=== PATIENT | female | born 1940 | race African-American/Black ===

== ENCOUNTER 2016-03-20 08:45 | Emergency (ER) | payer OTHER ==
[~2016-03-20] VITALS: Ht 165.1 cm; Wt 152.0 kg
--- NOTE | ~2016-03-20 | EKG ---
[address] [address] ELECTROCARDIOGRAM REPORT Name: VICTORINO HORTA Room #: DEP Gene#: [id number] Admission: 03/20/16 Attend Phys: Discharge: 03/20/16 Date of : 44 Report #: [id number] THIS REPORT FOR: //name// [facility] ED Test Date: 2016-03-20 Test Time: 09:13:26 Pat Name: VICTORINO HORTA Department: Room: Gender: F Rn Neonatal Icu: Karen MAJOR : 1940 Requested By: Baldev Davidson Order Number: [id number] MD: Kishor Roth Measurements Intervals [place] Rate: 101 P: 52 FL: 238 QRS: 50 QRSD: 96 T: 1 QT: 342 QTc: 444 Interpretive Statements Sinus tachycardia Prolonged FL interval No previous ECG available for comparison Electronically Signed On 03-20-2016 16:47:18 ELECTRONICS DETAIL DRAFTSPERSON by Kishor Roth [email or web address] <ELECTRONICALLY SIGNED> By: Kishor Roth MD 03/20/16 1647 0913 2 MD GERMAN Dominguez
[~2016-03-20 08:45] MED LIST: AMARYL2 MG; AMBEREN; ANTACID500 MG; BENTYL10 MG; BUSPIRONE; CARAFATE 11 GM/10 M1 PO; CHLORHEXIDINE; CIPRO500 MG PO; CLONAZEPAM; COLACE 100 MG100 MG PO; COLACE100 MG; DUONEB 2.5-0.5 M3 ML INH; FLAGYL500 MG PO; FLONASE 0.05%50 MCG; FUROSEMIDE 40 M40 M1; HYDROCODON-ACE1 EAC7 PO; KEFLEX500 MG PO; LISINOPRIL20 MG PO; LOPRESSOR; LOPRESSOR25 PO; MIRALAX17 GM PO; MIRALAX255 GM; MUCINEX600 MG; NEURONTIN 300300 M1 PO; OMEPRAZOLE; RANITIDINE; SENNA8.6 MG PO; SERTRALINE HCL25 MG PO; TESSALON200 MG; TIZANIDINE HCL4 M1 PO; TYLENOL325 MG PO; VICODIN; VITAMIN D 5050000 I1 PO; VITCB500GO; ZOFRAN4 MG
[2016-03-20] MEDS ORDERED: PULMICORT0.5 MG/22 INH (08:57)
[2016-03-20] MEDS ORDERED: ALBUTEROL2.5 MG/0.5 INH (08:57)
[2016-03-20] MEDS ORDERED: CIPRODEX OTIC7.5 ML OTIC (08:59)
[2016-03-20] MEDS ORDERED: ACETYLCYST100 MG/1 M MC (09:01)
[2016-03-20] MEDS ORDERED: ACETYLCYST200 MG/1 M INH (09:01)
[2016-03-20] MEDS ORDERED: ISOPTO TEARS15 ML OP (09:03)
[2016-03-20] MEDS ORDERED: PAROEX473 ML MM (09:04)
[2016-03-20] MEDS ORDERED: GUAIFENESIN DM1 EACH PO (09:07)
[2016-03-20 09:08] LABS: URINE BILIRUBIN NEGATIVE (Negative); URINE BLOOD 1+ (Negative); URINE COLOR YELLOW; URINE GLUCOSE-RANDOM* NEGATIVE (Negative); URINE KETONES NEGATIVE (Negative); URINE LEUKOCYTES-REFLEX 2+ (Negative); URINE PROTEIN (DIPSTICK) 2+ (Negative); URINE UROBILINOGEN 0.2 E.U./dl (0.2-1.0)
[2016-03-20] MEDS ORDERED: NYAMYC15 GM TOP (09:08)
[2016-03-20] MEDS ORDERED: TUMS PO (09:09)
[2016-03-20] MEDS ORDERED: VITAMIN D 5050000 I1 PO (09:10)
[2016-03-20] MEDS ORDERED: ONDANSETRON HCL4 M2 PO (09:11)
[2016-03-20 09:20] LABS: CASTS None Seen /LPF (None Seen); SQUAMOUS 0-3 Few /LPF (0-3); URINE RBC 3-10 Few /HPF (0-2); URINE WBC-REFLEX >25 Many /HPF (0-5)
[2016-03-20 09:24] LABS: AMORPHOUS PHOSPHATES Moderate /LPF (None Seen)
[2016-03-20 09:45] LABS: BASOPHILS 0.5 % (0.0-2.0); EOSINOPHILS 0.7 % (0.0-3.0); HEMATOCRIT 40.6 % (37.0-47.0); MCHC 32.1 % (28.0-37.0); MCV 87.2 fL (80.0-100.0); MONOCYTES 9.3 % (1.0-8.0); PLATELET COUNT 157 thou/uL (150-400); POLYS 57.5 % (36.0-66.0); RBC 4.66 mil/uL (4.20-5.00); RDW 13.2 % (10.5-14.5); WBC 5.3 thou/uL (4.0-11.0)
[2016-03-20 09:49] LABS: MANUAL DIFF NO
[2016-03-20 09:51] LABS: ANION GAP 5 mmol/L (7-16); BUN 11 mg/dL (7-18); CALCIUM 9.6 mg/dL (8.5-10.1); CHLORIDE 98 mmol/L (98-107); CO2 34 mmol/L (21-32); CREATININE 0.9 mg/dL (0.6-1.3); GLUCOSE 116 mg/dL (70-99); POTASSIUM 3.8 mmol/L (3.5-5.1); SODIUM 137 mmol/L (136-145)
[2016-03-20 10:08] LABS: ALBUMIN 3.6 g/dL (3.4-5.0); ALKALINE PHOSPHATASE 91 U/L (46-116); MAGNESIUM 1.5 mg/dL (1.8-2.4); NT-PRO BRAIN NAT PEPTIDE 556 pg/mL (<300); SGOT 23 U/L (15-37); SGPT 18 U/L (30-65); TOTAL BILIRUBIN 0.3 mg/dL (<0.1-1.0); TOTAL PROTEIN 8.6 g/dL (6.4-8.2); TROPONIN-I < 0.04 ng/mL (<0.04-0.07)
[2016-03-20] MEDS ORDERED: LEVAQUIN 500 M500 M1 PO (10:38)
[2016-03-20] MEDS ORDERED: OSELB75 PO (10:38)
== END 2016-03-20 12:00 | disposition home or self-care (01) ==
LOC: ER 08:45
PROVIDERS: Emergency Medicine
DX: I13.0 Hypertensive heart and chronic kidney disease with heart failure and stage 1 through stage 4 chronic kidney disease, or unspecified chronic kidney disease (principal); E11.22 Type 2 diabetes mellitus with diabetic chronic kidney disease; I50.9 Heart failure, unspecified; J44.9 Chronic obstructive pulmonary disease, unspecified; N39.0 Urinary tract infection, site not specified; J11.1 Influenza due to unidentified influenza virus with other respiratory manifestations; N18.9 Chronic kidney disease, unspecified; K21.9 Gastro-esophageal reflux disease without esophagitis; F41.9 Anxiety disorder, unspecified; Z93.0 Tracheostomy status; Z90.710 Acquired absence of both cervix and uterus; Z88.0 Allergy status to penicillin; E83.42 Hypomagnesemia

== ENCOUNTER 2017-05-25 11:08 | Emergency (ER) | payer OTHER ==
[~2017-05-25] VITALS: Ht 152.4 cm; Wt 163.3 kg
[~2017-05-25 11:08] MED LIST changes: +ACETYLCYST100 MG/1 M MC; +ACETYLCYST200 MG/1 M INH; +ALBUTEROL2.5 MG/0.5 INH; +CIPRODEX OTIC7.5 ML OTIC; +GUAIFENESIN DM1 EACH PO; +ISOPTO TEARS15 ML OP; +LEVAQUIN 500 M500 M1 PO; +NYAMYC15 GM TOP; +ONDANSETRON HCL4 M2 PO; +OSELB75 PO; +PAROEX473 ML MM; +PULMICORT0.5 MG/22 INH; +TUMS PO
[2017-05-25 11:42] LABS: ABSOLUTE NEUTROPHILS 4.8 thou/uL (1.4-8.2); BASOPHILS 0.6 % (0.0-2.0); EOSINOPHILS 2.3 % (0.0-3.0); HEMATOCRIT 35.2 % (37.0-47.0); HEMOGLOBIN 11.2 gm/dL (12.0-15.0); LYMPHOCYTES 24.4 % (24.0-44.0); MCH 28.3 pg (26.0-34.0); MCHC 31.7 g/dL (28.0-37.0); MONOCYTES 5.1 % (1.0-8.0); PLATELET COUNT 227 thou/uL (150-400); POLYS 67.6 % (36.0-66.0); RBC 3.96 mil/uL (4.20-5.00); RDW 12.6 % (10.5-14.5); WBC 7.1 thou/uL (4.0-11.0)
[2017-05-25 11:51] LABS: CALCIUM 9.7 mg/dL (8.5-10.1); CREATININE 0.8 mg/dL (0.6-1.0); POTASSIUM 4.4 mmol/L (3.5-5.1)
[2017-05-25 12:01] LABS: URINE BILIRUBIN NEGATIVE (Negative); URINE BLOOD 3+ (Negative); URINE CLARITY SL CLOUDY; URINE GLUCOSE-RANDOM* NEGATIVE (Negative); URINE KETONES NEGATIVE (Negative); URINE LEUKOCYTES 2+ (Negative); URINE NITRITE NEGATIVE (Negative); URINE PROTEIN (DIPSTICK) 1+ (Negative); URINE SPECIFIC GRAVITY <= 1.005 (1.005-1.035); URINE UROBILINOGEN 0.2 E.U./dl (0.2-1.0)
[2017-05-25] MEDS ORDERED: CEFUROXIME250 MG PO (12:02)
[2017-05-25 12:03] LABS: URINE COLOR PALE YELLOW
[2017-05-25 12:27] LABS: BACTERIA 1-9 Few /HPF (None Seen); CASTS None Seen /LPF (None Seen); CRYSTALS None Seen /LPF (None Seen); SQUAMOUS 0-3 Few /LPF (0-3); URINE WBC 6-15 Few /HPF (0-5)
[2017-05-25 15:04] VITALS: BP 152/68
== END 2017-05-25 15:06 | disposition home or self-care (01) ==
LOC: ER 11:08
PROVIDERS: Emergency Medicine
DX: N30.90 Cystitis, unspecified without hematuria (principal); I12.9 Hypertensive chronic kidney disease with stage 1 through stage 4 chronic kidney disease, or unspecified chronic kidney disease; E11.22 Type 2 diabetes mellitus with diabetic chronic kidney disease; N18.9 Chronic kidney disease, unspecified; K21.9 Gastro-esophageal reflux disease without esophagitis; J44.9 Chronic obstructive pulmonary disease, unspecified; Z88.0 Allergy status to penicillin

== ENCOUNTER 2018-02-14 06:00 | Inpatient (IN) | payer OTHER ==
[2018-02-14] VITALS (44 sets, daily range): BP systolic 89–154; BP diastolic 34–85
[~2018-02-14] VITALS: Ht 154.9 cm; Wt 148.5 kg
--- NOTE | ~2018-02-14 | 2DMMODE ---
[facility] [place] [address] 2 D/M-MODE ECHOCARDIOGRAM Name: VICTORINO HORTA Room #: 242-P ADM IN M.R.#: [id number] Admission: 02/14/18 Attend Phys: Josh Dorsey MD Discharge: Date of : 44 Date of Service: 02/15/18 1148 Report #: [id number] THIS REPORT FOR: //name// APPROVED REPORT Study performed: 02/15/2018 10:44:17 EXAM: Comprehensive 2D, Doppler, and color-flow Echocardiogram Patient Location: ICU Room #: 242 Status: routine BSA: 2.34 HR: 75 bpm BP: 136/70 mmHg Rhythm: NSR Other Information Study Quality: Adequate Technically limited study due to morbid obesity, no patient mobility, trach. Indications Hypoxia, CHF. Hx: Trach, COPD, CHF, HTN, DM Echo Enhancing Agent Indication: Endocardial border delineation Agent(s) / Amount(s) Used: Optison 5 cc 2D Dimensions RVDd: 38.69 mm IVSd: 11.96 (7-11mm) LVOT Diam: 19.13 (18-24mm) LVDd: 41.74 mm PWd: 11.74 (7-11mm) Ascending Ao: 37.03 (22-36mm) LVDs: 25.10 (25-40mm) Aortic Root: 30.03 mm Volumes Left Atrial Volume (Systole) Single Plane 4CH: 46.56 mL Single Plane 2CH: 79.20 mL LA ESV Index: 28.00 mL/m2 Aortic Valve AoV Peak Stan.: 2.28 m/s AO Peak Gr.: 20.78 mmHg LVOT Max P.11 mmHg LVOT Max V: 1.67 m/s [facility] [place] [address] 2 D/M-MODE ECHOCARDIOGRAM Name: VICTORINO HORTA Room #: 242-[facility] IN M.R.#: [id number] Admission: 02/14/18 Attend Phys: Josh Dorsey MD Discharge: Date of : 44 Date of Service: 02/15/18 1148 Report #: [id number] NOAM Vmax: 2.10 cm2 Mitral Valve E/A Ratio: 1.3 MV Decel. Time: 185.06 ms MV E Max Stan.: 1.04 m/s MV A Stan.: 0.79 m/s MV PHT: 53.67 ms IVRT: 79.58 ms Pulmonary Valve PV Peak Stan.: 1.45 m/s PV Peak Gr.: 8.39 mmHg Pulmonary Vein P Vein S: 0.61 m/s P Vein D: 0.65 m/s P Vein S/D Ratio: 0.94 Tricuspid Valve TR Peak Stan.: 2.59 m/s RAP Estimate: 15.00 mmHg TR Peak Gr.: 26.81 mmHg PA Pressure: 42.00 mmHg Left Ventricle The left ventricle is normal size. There is normal LV segmental wall motion. Mild concentric left ventricular hypertrophy. Left ventricular systolic function is normal. LVEF is 65%. Moderate diastolic dysfunction is present (pseudonormal filling). Right Ventricle The right ventricle is normal size. The right ventricular systolic function is normal. Atria The left atrium size is normal. The right atrium size is normal. Aortic Valve The Aortic valve is mildly sclerotic. No aortic regurgitation is present. There is no aortic valvular stenosis. Mitral Valve The mitral valve is normal in structure. Mild mitral regurgitation. No evidence of mitral valve stenosis. Tricuspid Valve [facility] [address] [place] [address] 2 D/M-MODE ECHOCARDIOGRAM Name: VICTORINO HORTA Room #: 242-P [facility] IN M.R.#: [id number] Admission: 02/14/18 Attend Phys: Josh Dorsey MD Discharge: Date of : 44 Date of Service: 02/15/18 1148 Report #: [id number] The tricuspid valve is normal in structure. Mild tricuspid regurgitation. Estimated PAP is 40mmHg. Pulmonic Valve Pulmonic valve is not well visualized. Great Vessels The aortic root is normal in size. The ascending aorta is normal in size. IVC is dilated and collapses <50% with inspiration. Pericardium There is no pericardial effusion. <Conclusion> The left ventricle is normal size. LVEF is 65%. The Aortic valve is mildly sclerotic. The mitral valve is normal in structure. Mild mitral regurgitation. The tricuspid valve is normal in structure. Mild tricuspid regurgitation. Estimated PAP is 40mmHg. Pulmonic valve is not well visualized. There is no pericardial effusion. <ELECTRONICALLY SIGNED> By: Diallo Posey MD 02/15/18 1148 1148 1148 Diallo Posey MD /INF
--- NOTE | ~2018-02-14 | EKG ---
[address] [place] [address] ELECTROCARDIOGRAM REPORT Name: HORTAVICTORINO Room #: 237- ADM IN M.R.#: [id number] Admission: 02/14/18 Attend Phys: Josh Dorsey MD Discharge: Date of : 44 Report #: [id number] THIS REPORT FOR: //name// [facility] Test Date: 2018-02-16 Test Time: 19:26:00 Pat Name: VICTORINO HORTA Department: Room: 237 Gender: F Data Analysis Assistant: Mac COTTRELL : 1940 Requested By: Manuel Chun Order Number: [id number] MD: Jhon Monet Measurements Intervals [place] Rate: 156 P: [place]: QRS: 58 QRSD: 95 T: 10 QT: 323 QTc: 521 Interpretive Statements Atrial fibrillation with rapid V-rate ST depression, probably rate related Artifact in lead(s) I,II,III,aVR,aVL,aVF,V1,V6 Compared to ECG 02/14/2018 06:11:46 ST (T wave) deviation now present Electronically Signed On 02-17-2018 8:18:44 NETWORK SYSTEMS ANALYST by Jhon Monet [email or web address] <ELECTRONICALLY SIGNED> By: Jhon Monet MD 02/17/18817 25 25 Jhon Monet MD /EPI
--- NOTE | ~2018-02-14 | O ---
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 She just had a tracheostomy tube changed to a cuffed trach. She previously had an uncuffed trach. A Shiley #6 cuffed trach was placed. The patient was fairly stable immediately post-surgery; however, over time, she became more dyspneic, in respiratory distress and not able to ventilate. POSTOPERATIVE DIAGNOSES: 1. Large airway obstruction involving the distal trachea, right mainstem due to what appears to be a mucus plug. The mucus plug appears to be due to tissue appearing lung mass. 2. No endobronchial lesions seen other than the mentioned above. DESCRIPTION OF PROCEDURE: The procedure was performed urgently as the patient is in acute respiratory distress. She was found to be difficult to ventilate, the patient appeared to be in severe distress. A disposable bronchoscope was then introduced through the tracheostomy. Just past the tracheostomy, there appears to be a soft tissue mass obstructing the distal trachea. This soft tissue mass appears to be mobile. This appears to be old mucus plug. Eventually, the mucus plug did travel distally to the right main stem bronchus completely occluding the lumen. We then proceeded to a standard bronchoscope. Forceps biopsy was used along with a basket. Forceps biopsy seemed to work the best. Multiple bites of the mucus plug was done reducing the size of the mucus plug. We then were able to move the mucus plug to the distal part of the tracheostomy tube. We then advanced an ET tube suction. We did multiple attempts until the final attempt we were able to suction out the larger end of the mucus plug. Following this, the patient was able to be ventilated easier. Saturation and vital signs were in the normal range. Saturation was in excess of 97%. The rest of the airways were examined. Following the procedure retrieving the mucus plug, the airways appeared to be mildly edematous. Bronchoscopic trauma was noted with some bruising in the mucosa. Otherwise, no bleeding is noted. Otherwise, left main stem bronchus, left upper lobe and left lower lobe was unremarkable other than mentioned above. Right mainstem bronchus, right upper lobe, right middle lobe and right lower lobe was also unremarkable other than the edema and erythema due to bronchoscopic trauma. [address] [address] OPERATIVE REPORT Name: VICTORINO HORTA Room #: 237-P [facility] IN M.R.#: [id number] Admission: 02/14/18 Attend Phys: Josh Dorsey MD Discharge: Date of : 44 Report #: [id number] The patient tolerated the procedure well and no complications. The mucus plug will be sent for pathology. <ELECTRONICALLY SIGNED> By: Manuel Chun MD 02/18/18 1659 1048 1112 Manuel Chun MD /nt
--- NOTE | ~2018-02-14 | EKG ---
[address] [address] ELECTROCARDIOGRAM REPORT Name: VICTORINO HORTA Room #: 242-P ADM IN M.R.#: [id number] Admission: 02/14/18 Attend Phys: Beau White MD Discharge: Date of : 44 Report #: [id number] THIS REPORT FOR: //name// [facility] ED Test Date: 2018-02-14 Test Time: 06:11:46 Pat Name: VICTORINO HORTA Department: Room: 242 Gender: F Senior Audit Manager: herberth : 1940 Requested By: Aga Berry Order Number: [id number] MD: Kishor Roth Measurements Intervals [place] Rate: 98 P: -29 [place]: 194 QRS: 55 QRSD: 111 T: 16 QT: 340 QTc: 435 Interpretive Statements Possible atrial flutter but excessive artifact makes interpretation challenging Electronically Signed On 02-14-2018 20:40:57 MEDICAL BILLING COORDINATOR by Kishor Roth [email or web address] <ELECTRONICALLY SIGNED> By: Kishor Roth MD 02/14/182039 0 0 Kishor Roth MD /ALICIA
--- NOTE | ~2018-02-14 | PATH ---
[facility] [address] [place] [address] PATHOLOGY RPT PROCEDURE Name: CHRISTEN HORTA Room #: 361-P ADM IN M.R.#: [id number] Admission: 02/14/18 Date of : 44 Discharge: Report #: [id number] Path Case #: [id number] [facility] Accession Number: [id number] . 01 Material submitted: . RIGHT MAIN STEM BRONCHUS . 01 Clinical history: . Increased SOA, decreased LOC . 02 Diagnosis: Right mainstem bronchus, biopsy: - Specimen entirely comprised of fibrinopurulent debris. - No intact or viable epithelial cell elements present. - Negative for malignancy. (IUV:strap buckler; 02/19/2018) MBR/02/19/2018 . 02 Electronically signed: . Ariana Rosenberg MD, Pathologist NPI- [id number] . 01 Gross description: . The specimen is received in formalin, labeled "Christen Horta, right mainstem bronchus". Received is cloudy mucoid material admixed with possible soft tissue measuring 2.8 x 1.4 x 0.5 cm in aggregate dimensions. The specimen is filtered and entirely submitted in cassette A1. (CAA; 02/18/2018) QAC/QAC . 02 Pathologist provided ICD-10: R06.02 . 02 CPT . 527644 Specimen Comment: A courtesy copy of this report has been sent to Specimen Comment: [phone], . Specimen Comment: Report sent to / DR ADAIR Specimen Comment: A duplicate report has been generated due to demographic updates. Performed at: [address] [id number] MD aDvid Brown MD Phone: [phone] Performed at: [address] [id number] [address] [address] PATHOLOGY RPT PROCEDURE Name: CHRISTEN HORTA Room #: 361-P ADM IN M.R.#: [id number] Admission: 02/14/18 Date of : 44 Discharge: Report #: [id number] Path Case #: [id number] MD Ariana Rosenberg MD Phone: [phone]
[~2018-02-14 06:00] MED LIST changes: +CEFUROXIME250 MG PO
[2018-02-14] MEDS ORDERED: ALBUTEROL2.5 MG/31 INH (06:16)
[2018-02-14] MEDS ORDERED: SPIRONOLACTONE25 M1 PO (06:17)
[2018-02-14] MEDS ORDERED: ASPIR 8181 MG PO (06:18)
[2018-02-14] MEDS ORDERED: ACIDOPHILUS1 EAC4 PO (06:18)
[2018-02-14] MEDS ORDERED: ARTIFICIAL TEAR15 M1 OPHTHALMIC (06:18)
[2018-02-14] MEDS ORDERED: PULMICORT0.5 MG/22 INH (06:19)
[2018-02-14] MEDS ORDERED: MILK OF MA2400 MG/10 PO (06:20)
[2018-02-14] MEDS ORDERED: MIRALAX17 GM PO (06:21)
[2018-02-14] MEDS ORDERED: MUCINEX600 MG PO (06:21)
[2018-02-14] MEDS ORDERED: NYSTATIN CREAM TOP (06:22)
[2018-02-14] MEDS ORDERED: PERIDEX15 ML PO (06:23)
[2018-02-14] MEDS ORDERED: PROBIOTIC1 EAC1 PO (06:23)
[2018-02-14 06:24] LABS: ANION GAP 15 mmol/L (7-16); BUN 14 mg/dL (7-18); CALCIUM 7.6 mg/dL (8.5-10.1); CHLORIDE 101 mmol/L (98-107); CO2 26 mmol/L (21-32); CREATININE 1.2 mg/dL (0.6-1.0); GLUCOSE 190 mg/dL (74-106); POTASSIUM 4.1 mmol/L (3.5-5.1); SODIUM 142 mmol/L (136-145)
[2018-02-14] MEDS ORDERED: PROTONIX40 M1 PO (06:24)
[2018-02-14] MEDS ORDERED: TUMS PO (06:25)
[2018-02-14 06:29] LABS: BE(vivo) 3.2 mmol/L (-2 to +3); HCO3 33.4 mmol/L (22.0-26.0); PCO2 87.6 mmHg (35.0-45.0); PO2 81.5 mmHg (80.0-100.0); pH 7.199 (7.360-7.450); sO2 92.7 % (92.0-98.0)
[2018-02-14 06:33] LABS: ABSOLUTE NEUTROPHILS 4.1 thou/uL (1.4-8.2); ALBUMIN 2.4 g/dL (3.4-5.0); BASOPHILS 0.3 % (0.0-2.0); EOSINOPHILS 0.3 % (0.0-3.0); HEMATOCRIT 38.5 % (37.0-47.0); HEMOGLOBIN 11.4 gm/dL (12.0-15.0); LYMPHOCYTES 20.3 % (24.0-44.0); MCH 27.5 pg (26.0-34.0); MCHC 29.5 g/dL (28.0-37.0); MCV 93.1 fL (80.0-100.0); MONOCYTES 3.3 % (1.0-8.0); PLATELET COUNT 196 thou/uL (150-400); POLYS 75.8 % (36.0-66.0); RBC 4.14 mil/uL (4.20-5.00); RDW 14.3 % (10.5-14.5); SGOT 172 U/L (15-37); SGPT 81 U/L (30-65); TOTAL BILIRUBIN 0.4 mg/dL (<0.1-1.0); TOTAL PROTEIN 6.4 g/dL (6.4-8.2); TROPONIN-I <0.06 ng/mL (<0.06); WBC 6.6 thou/uL (4.0-11.0)
[2018-02-14 07:45] LABS: LARGE PLATELETS SEVERAL
[2018-02-14 08:00] LABS: URINE BILIRUBIN NEGATIVE (Negative); URINE BLOOD 3+ (Negative); URINE CLARITY CLEAR; URINE COLOR YELLOW; URINE GLUCOSE-RANDOM* NEGATIVE (Negative); URINE KETONES NEGATIVE (Negative); URINE LEUKOCYTES-REFLEX 3+ (Negative); URINE NITRITE-REFLEX NEGATIVE (Negative); URINE PROTEIN (DIPSTICK) 3+ (Negative)
[2018-02-14 08:01] LABS: BE(vivo) 8.7 mmol/L (-2 to +3); HCO3 33.9 mmol/L (22.0-26.0); PCO2 50.4 mmHg (35.0-45.0); PO2 91.1 mmHg (80.0-100.0); pH 7.446 (7.360-7.450); sO2 97.1 % (92.0-98.0)
[2018-02-14 08:08] LABS: AMORPHOUS PHOSPHATES Many /LPF (None Seen); BACTERIA-REFLEX >30 Many /HPF (None Seen); CASTS None Seen /LPF (None Seen); SQUAMOUS 0-3 Few /LPF (0-3); URINE RBC >20 Many /HPF (0-2); URINE WBC-REFLEX >25 Many /HPF (0-5); WBC CLUMPS Packed (None Seen)
[2018-02-15] VITALS (27 sets, daily range): BP systolic 119–166; BP diastolic 39–89
[2018-02-15 04:09] LABS: HEMATOCRIT 28.6 % (37.0-47.0); MCH 28.1 pg (26.0-34.0); MCHC 31.2 g/dL (28.0-37.0); MCV 90.1 fL (80.0-100.0); RBC 3.18 mil/uL (4.20-5.00); RDW 13.8 % (10.5-14.5); WBC 8.5 thou/uL (4.0-11.0)
[2018-02-15 04:13] LABS: HEMOGLOBIN 8.9 gm/dL (12.0-15.0)
[2018-02-15 04:26] LABS: CALCIUM 8.2 mg/dL (8.5-10.1); CREATININE 1.1 mg/dL (0.6-1.0); POTASSIUM 3.5 mmol/L (3.5-5.1)
[2018-02-16] VITALS (18 sets, daily range): BP systolic 79–177; BP diastolic 19–102
[2018-02-16 19:24] LABS: BE(vivo) 2.9 mmol/L (-2 to +3); HCO3 31.7 mmol/L (22.0-26.0); PCO2 71.7 mmHg (35.0-45.0); PO2 110.4 mmHg (80.0-100.0); pH 7.264 (7.360-7.450); sO2 97.2 % (92.0-98.0)
[2018-02-16 21:48] LABS: CALCIUM 8.7 mg/dL (8.5-10.1); CREATININE 1.1 mg/dL (0.6-1.0); POTASSIUM 3.8 mmol/L (3.5-5.1)
[2018-02-16 21:57] LABS: TROPONIN-I 0.07 ng/mL (<0.06)
[2018-02-16 22:10] LABS: HEMATOCRIT 30.3 % (37.0-47.0); HEMOGLOBIN 9.7 gm/dL (12.0-15.0); MCH 28.4 pg (26.0-34.0); RBC 3.4 mil/uL (4.20-5.00); RDW 14.1 % (10.5-14.5); WBC 9.6 thou/uL (4.0-11.0)
[2018-02-17] VITALS (34 sets, daily range): BP systolic 106–222; BP diastolic 55–164
[2018-02-17 12:23] LABS: BE(vivo) 10.2 mmol/L (-2 to +3); HCO3 38.4 mmol/L (22.0-26.0); PO2 95.1 mmHg (80.0-100.0); pH 7.341 (7.360-7.450); sO2 96.6 % (92.0-98.0)
[2018-02-17 12:24] LABS: PCO2 72.7 mmHg (35.0-45.0)
[2018-02-18] VITALS (29 sets, daily range): BP systolic 135–186; BP diastolic 52–86
[2018-02-18 05:35] LABS: HEMOGLOBIN 9.9 gm/dL (12.0-15.0); MCH 27.7 pg (26.0-34.0); MCHC 30.8 g/dL (28.0-37.0); MCV 89.9 fL (80.0-100.0); RBC 3.56 mil/uL (4.20-5.00); RDW 14.2 % (10.5-14.5); WBC 9.9 thou/uL (4.0-11.0)
[2018-02-18 05:49] LABS: HCO3 31.2 mmol/L (22.0-26.0); PCO2 42.7 mmHg (35.0-45.0); PO2 126.9 mmHg (80.0-100.0); pH 7.481 (7.360-7.450); sO2 98.7 % (92.0-98.0)
[2018-02-18 05:49] LABS: CALCIUM 8.5 mg/dL (8.5-10.1); CREATININE 1.2 mg/dL (0.6-1.0); POTASSIUM 3.2 mmol/L (3.5-5.1)
[2018-02-18 13:51] LABS: MAGNESIUM 2.2 mg/dL (1.8-2.4); POTASSIUM 3.9 mmol/L (3.5-5.1)
[2018-02-19] VITALS (23 sets, daily range): BP systolic 130–177; BP diastolic 47–91
[2018-02-19 06:31] LABS: HEMATOCRIT 32.1 % (37.0-47.0); HEMOGLOBIN 10.1 gm/dL (12.0-15.0); MCH 27.9 pg (26.0-34.0); MCHC 31.5 g/dL (28.0-37.0); MCV 88.7 fL (80.0-100.0); RBC 3.62 mil/uL (4.20-5.00); RDW 14.2 % (10.5-14.5); WBC 13.3 thou/uL (4.0-11.0)
[2018-02-19 07:17] LABS: CALCIUM 9.1 mg/dL (8.5-10.1); CREATININE 1.2 mg/dL (0.6-1.0); MAGNESIUM 2.1 mg/dL (1.8-2.4); POTASSIUM 4.1 mmol/L (3.5-5.1)
[2018-02-19 23:10] LABS: INFLUENZA A Negative (Negative); INFLUENZA B Negative (Negative); METAPNEUMOVIRUS Negative (Negative); PARAINFLUENZA 1 Negative (Negative); PARAINFLUENZA 2 Negative (Negative); PARAINFLUENZA 3 Negative (Negative); RSV B Negative (Negative)
[2018-02-20 00:12] VITALS: BP 141/78
[2018-02-20 04:35] VITALS: BP 154/89
[2018-02-20 08:31] VITALS: BP 167/53
[2018-02-20 11:34] VITALS: BP 147/74
[2018-02-20 16:29] VITALS: BP 156/66
[2018-02-20 19:15] VITALS: BP 131/85
[2018-02-21] VITALS (8 sets, daily range): BP systolic 127–161; BP diastolic 62–81
[2018-02-22 04:14] VITALS: BP 143/75
[2018-02-22 07:56] VITALS: BP 148/75
[2018-02-22 12:12] VITALS: BP 154/85
[2018-02-22] MEDS ORDERED: CEFEPIME HCL2 GM IVPB (14:19)
[2018-02-22] MEDS ORDERED: IPRAT-ALBUT 0.5-3 ML INH (14:20)
[2018-02-22] MEDS ORDERED: ENOXAPARIN40 MG/0.1 SUBQ (14:21)
[2018-02-22] MEDS ORDERED: CATAPRES-TTS 20.2 MG TRANSDERM (14:22)
[2018-02-22] MEDS ORDERED: MORPHINE 44 MG/1 ML IV PUSH (14:23)
[2018-02-22] MEDS ORDERED: LORAZEPAM 22 MG/1 ML IV PUSH (14:24)
[2018-02-22 17:03] VITALS: BP 117/66
[2018-02-22 19:35] VITALS: BP 111/66
[2018-02-22 23:53] VITALS: BP 114/61
[2018-02-23 02:11] LABS: ADENOVIRUS Negative (Negative); RHINOVIRUS Negative (Negative); RSV A Negative (Negative)
[2018-02-23 04:41] VITALS: BP 122/69
[2018-02-23 07:49] VITALS: BP 140/78
[2018-02-23 11:31] VITALS: BP 172/79
[2018-02-23 17:00] VITALS: BP 90/48
== END 2018-02-23 18:15 | DRG 207 ==
LOC: ER 06:00 → EROBS 07:18 → ICU 07:18 → 3W 02-19 21:57
PROVIDERS: Hospitalist; Internal Medicine; Internal Medicine Pulmonary Disease; Pediatrics; Student in an Organized Health Care Education/Training Program
PROC: B548ZZA Ultrasonography of Superior Vena Cava, Guidance (ICD-10-PCS; principal; 2018-02-14)
PROC: 02HV33Z Insertion of Infusion Device into Superior Vena Cava, Percutaneous Approach (ICD-10-PCS; principal; 2018-02-14)
PROC: 5A1955Z Respiratory Ventilation, Greater than 96 Consecutive Hours (ICD-10-PCS; principal; 2018-02-14)
PROC: 0B21XFZ Change Tracheostomy Device in Trachea, External Approach (ICD-10-PCS; 2018-02-18)
PROC: 0BC38ZZ Extirpation of Matter from Right Main Bronchus, Via Natural or Artificial Opening Endoscopic (ICD-10-PCS; 2018-02-18)
DX: J95.09 Other tracheostomy complication (principal); J96.21 Acute and chronic respiratory failure with hypoxia; J96.22 Acute and chronic respiratory failure with hypercapnia; I50.31 Acute diastolic (congestive) heart failure; J15.1 Pneumonia due to Pseudomonas; J15.0 Pneumonia due to Klebsiella pneumoniae; I13.0 Hypertensive heart and chronic kidney disease with heart failure and stage 1 through stage 4 chronic kidney disease, or unspecified chronic kidney disease; N39.0 Urinary tract infection, site not specified; E87.2 Acidosis; Z68.44 Body mass index [BMI] 60.0-69.9, adult; E66.2 Morbid (severe) obesity with alveolar hypoventilation; I47.1 Supraventricular tachycardia; N18.9 Chronic kidney disease, unspecified; E11.22 Type 2 diabetes mellitus with diabetic chronic kidney disease; E11.40 Type 2 diabetes mellitus with diabetic neuropathy, unspecified; K21.9 Gastro-esophageal reflux disease without esophagitis; M19.90 Unspecified osteoarthritis, unspecified site; F41.9 Anxiety disorder, unspecified; J44.9 Chronic obstructive pulmonary disease, unspecified; Y95 Nosocomial condition; I48.0 Paroxysmal atrial fibrillation; E87.6 Hypokalemia; Y83.8 Other surgical procedures as the cause of abnormal reaction of the patient, or of later complication, without mention of misadventure at the time of the procedure; Y92.89 Other specified places as the place of occurrence of the external cause; Z93.0 Tracheostomy status; Z99.81 Dependence on supplemental oxygen; Z90.49 Acquired absence of other specified parts of digestive tract; Z90.710 Acquired absence of both cervix and uterus; Z79.82 Long term (current) use of aspirin; Z79.899 Other long term (current) drug therapy; Z88.0 Allergy status to penicillin
CPT/HCPCS: 10078; 10779; 10879; 27000